=== PATIENT | male | born 1990 | race Caucasian/White ===

== ENCOUNTER 2023-02-17 15:56 | Emergency (ER) | payer OTHER, SELFPAY ==
--- NOTE | 2023-02-17 17:04 | ED_ITS ---
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 No numbness or tingling. Up-to-date on the tetanus shot. Related Data Allergies Allergy/AdvReac Type Severity Reaction Status Date / Time No Known Allergies Allergy Verified 02/17/23 17:05 [No Known Allergies*] Review of Systems Review of Systems: Constitutional : No Fever, No Chills, Cardiovascular : No Chest Pain, No SOB Respiratory : No Dyspnea Gastrointestinal : No abdominal pain Musculoskeletal : No Joint Swelling Skin : No rash, positive skin laceration Neuro : No Weakness, No Numbness Psych : No SI/HI Yes all other systems are reviewed and are negative PMFSH Past Medical History Attestation statement: The following information was validated with the patient. Source: old records reviewed and nursing notes reviewed Social History Social History Advance Directives: No Advance Directives Information Provided: No Physical Exam ED Vital Signs: Vital Signs - 24 hr 02/17/23 17:05 Temperature 97.8 F Pulse Rate 81 Respiratory Rate 18 Blood Pressure 97/54 L Pulse Oximetry 100 Oxygen Delivery Method Room Air BMI result Body Mass Index 48.5 vss Appearance: Alert.? Oriented X3.? No acute distress.? Head: Normocephalic, atraumatic, no step-offs or deformities Eyes: Pupils equal, round and reactive to light.? CVS: Normal heart rate and rhythm.? Pulses normal.? Respiratory: No respiratory distress.? Breath sounds normal.? Abdomen: Soft and nontender.? Skin: Skin warm and dry.? Normal skin color.? Normal skin turgor.?+ 2 cm linear superficial lac to left palm no visualized fb. 2+ radial pulses equal and b/. Normal cap refil to b/l UE digits. No wrist drop b/l. Normal sensation distalaly. Extremities: No lower extremity edema.? No calf ttp. 5/5 strength to bilateral upper and lower extremities Neuro: Oriented X 3.? No motor deficit.? No sensory deficit. CN 2-12 intact Course Course Course Narrative: RME: 32yold male presents to the ED for left palm laceration casued by fridge. Laceration on palm has at some fat exposure. may need stiches. Medical Decision Making Medical Decision Making [facility] Narrative: 1758 32-year-old male presents with accidental laceration to left palm. Physical exam significant for Skin warm and dry.? Normal skin color.? Normal skin turgor.?+ 2 cm linear superficial lac to left palm no visualized fb. 2+ radial pulses equal and b/. Normal cap refil to b/l UE digits. No wrist drop b/l. Normal sensation distalaly. This is likely simple laceration involving only the epidermis. No signs of foreign body. Unlikely fracture dislocation. No no signs of threat to limb or neurovascular compromise. Plan repair with Dermabond. Did offer sutures to patient however he would prefer Dermabond. Went over risks versus benefits/press/cons. Patient verbalizes understanding. Plan at this time discharge home. Educated on signs of infection and when to return Differential Diagnosis Differential Diagnoses: The differential diagnosis associated with the presenta tion includes This is likely simple laceration involving only the epidermis. No signs of foreign body. Unlikely fracture dislocation. No no signs of threat to limb or neurovascular compromise. Admission/Observation Consideration of admission/observation: Escalation of care including admission/observation considered No indication Chronic Conditions Patient?s care impacted by: Other (Obesity) Critical Care Time Critical Care Time Critical Care Time: No Discharge Plan Discharge Clinical Impression: Laceration Patient Disposition: Home, Self-Care Instructions: Laceration (ED), Laceration Without Closure (ED) Additional Instructions: Take your medications as prescribed. If you were prescribed antibiotics today, it is important that you take your medication to their entirety, do not skip any doses, do not finish them early. Follow-up with your primary care provider this week. Return to the emergency department with new or worsening symptoms. Such as fevers, chills, chest pain, shortness of breath, nausea, vomiting, dizziness, headache, vision changes, lethargy In case of emergency call 911 Referrals: Vish Navarrete NP [Primary Care Provider] - 2 days Stand Alone Forms: Work/School Release Interventions: ED Discharge Assessment Last Done: 02/17/23 18:23 Discharge Date/Time: 02/17/23 18:23
[2023-02-17 17:05] VITALS: BP 97/54; PULSE 81; RESP 18; TEMP 36.6; O2SAT 100; BMI 48.5
[2023-02-17 18:16] VITALS: BP 124/80; PULSE 76; RESP 16; O2SAT 98
== END 2023-02-17 18:23 | disposition home or self-care (01) ==
PROVIDERS: Emergency Provider Emergency Medicine; PCP Nurse Practitioner Family
DX: S61.412A Laceration without foreign body of left hand, initial encounter (principal); W27.8XXA Contact with other nonpowered hand tool, initial encounter; Y93.89 Activity, other specified; Y92.9 Unspecified place or not applicable; Y99.9 Unspecified external cause status
CPT/HCPCS: 12001; 99283